=== PATIENT | female | born 1995 | race Hispanic/Latino ===

== ENCOUNTER 2018-05-02 23:21 | Emergency (ER) | payer OTHER ==
[2018-05-03 01:00] LABS: BASO % 0.3 % (0.0-1.0); EOS # 0.2 10^3/uL (0.0-0.50); EOS % 1.4 % (0.0-3.0); HEMATOCRIT 41.3 % (36.0-47.0); IMMATURE GRANULOCYTE % 0.3 % (0-3.0); LYMPH # 2.7 10^3/uL (1.5-6.5); LYMPH % 22.4 % (24.0-44.0); MEAN CORPUSCULAR HEMOGLOBIN 31.3 pg (27.0-33.0); MEAN CORPUSCULAR HGB CONC 33.9 g/dl (32.0-36.5); MEAN CORPUSCULAR VOLUME 92.4 fl (80.0-96.0); MONO # 0.9 10^3/uL (0.0-0.8); MONO % 7.3 % (0.0-5.0); NEUTROPHILS # 8.1 10^3/uL (1.8-7.7); NEUTROPHILS % 68.3 % (36.0-66.0); PLATELET COUNT, AUTOMATED 321 10^3/uL (150-450); RED BLOOD COUNT 4.47 10^6/uL (4.00-5.40); RED CELL DISTRIBUTION WIDTH 11.9 % (11.5-14.5); WHITE BLOOD COUNT 11.9 10^3/uL (4.0-10.0)
[2018-05-03 01:09] LABS: KETONE, URINE AUTO RFX 2+ mg/dL (NEGATIVE); LEUKOCYTE ESTERASE UR AUTO RFX NEGATIVE (NEGATIVE); MUCUS, URINE RFX SMALL (NEGATIVE); NITRITE, URINE AUTO RFX NEGATIVE (NEGATIVE); RBC, URINE AUTO RFX 4 /HPF (0-3); SPECIFIC GRAVITY UR AUTO RFX 1.013 (1.002-1.035); SQUAM EPITHELIAL CELL UR AURFX 3 /HPF (0-6); WBC, URINE AUTO RFX 1 /HPF (0-3)
[2018-05-03 02:00] LABS: ANION GAP 10 MEQ/L (8-16); BLOOD UREA NITROGEN 5 MG/DL (7-18); CALCIUM LEVEL 8.6 MG/DL (8.5-10.1); CARBON DIOXIDE LEVEL 23 MEQ/L (21-32); CHLORIDE LEVEL 104 MEQ/L (98-107); GLOMERULAR FILTRATION RATE > 60.0 (>60); GLUCOSE, FASTING 93 MG/DL (70-100); HCG, SERUM QUANTITATIVE 94579 MIU/ML; POTASSIUM SERUM 3.3 MEQ/L (3.5-5.1); SODIUM LEVEL 137 MEQ/L (136-145)
[2018-05-03] MEDS: POTASSIUM CHLORIDE 10 MEQ SR TABLET PO ×2 (03:07)
[2018-05-03 03:12] LABS: CHLAMYDIA DNA AMPLIFICATION NEGATIVE (NEGATIVE); GC DNA AMPLIFICATION NEGATIVE (NEGATIVE)
[2018-05-03] MEDS: metroNIDAZOLE (FLAGYL) 500 MG TAB PO ×2 (04:15)
== END 2018-05-03 04:29 | disposition home or self-care (01) ==
LOC: M ED 23:21
DX: O20.0 Threatened abortion (principal); O20.8 Other hemorrhage in early pregnancy; O23.91 Unspecified genitourinary tract infection in pregnancy, first trimester; Z3A.01 Less than 8 weeks gestation of pregnancy
CPT/HCPCS: 76801

== ENCOUNTER 2018-05-29 18:28 | Emergency (ER) | payer OTHER ==
[2018-05-29 19:25] LABS: BASO % 0.1 % (0.0-1.0); EOS # 0.1 10^3/uL (0.0-0.50); EOS % 1.3 % (0.0-3.0); HEMATOCRIT 38.8 % (36.0-47.0); HEMOGLOBIN 13.2 g/dl (12.0-15.5); IMMATURE GRANULOCYTE % 0.4 % (0-3.0); LYMPH # 1.2 10^3/uL (1.5-6.5); LYMPH % 14.3 % (24.0-44.0); MEAN CORPUSCULAR HEMOGLOBIN 31.4 pg (27.0-33.0); MEAN CORPUSCULAR VOLUME 92.2 fl (80.0-96.0); MONO # 0.5 10^3/uL (0.0-0.8); MONO % 6.1 % (0.0-5.0); NEUTROPHILS # 6.5 10^3/uL (1.8-7.7); NEUTROPHILS % 77.8 % (36.0-66.0); PLATELET COUNT, AUTOMATED 280 10^3/uL (150-450); RED BLOOD COUNT 4.21 10^6/uL (4.00-5.40); RED CELL DISTRIBUTION WIDTH 11.5 % (11.5-14.5); WHITE BLOOD COUNT 8.4 10^3/uL (4.0-10.0)
[2018-05-29 19:33] LABS: AMORPHOUS SEDIMENT RFX LARGE (NEGATIVE); KETONE, URINE AUTO RFX TRACE mg/dL (NEGATIVE); MUCUS, URINE RFX SMALL (NEGATIVE); NITRITE, URINE AUTO RFX NEGATIVE (NEGATIVE); RBC, URINE AUTO RFX 0 /HPF (0-3); SPECIFIC GRAVITY UR AUTO RFX 1.023 (1.002-1.035); SQUAM EPITHELIAL CELL UR AURFX 2 /HPF (0-6); WBC, URINE AUTO RFX 2 /HPF (0-3)
[2018-05-29 20:16] LABS: HCG, SERUM QUANTITATIVE 174121 MIU/ML
[2018-05-29 20:27] LABS: LEUKOCYTE ESTERASE UR AUTO RFX TRACE (NEGATIVE)
== END 2018-05-29 20:47 | disposition home or self-care (01) ==
LOC: M ED 18:28
DX: O26.891 Other specified pregnancy related conditions, first trimester (principal); R10.2 Pelvic and perineal pain; Z3A.11 11 weeks gestation of pregnancy; Z79.899 Other long term (current) drug therapy
CPT/HCPCS: 76801

== ENCOUNTER 2018-07-26 22:51 | Emergency (ER) | payer OTHER | END 2018-07-26 23:40 | disposition admitted as inpatient to this hospital (09) | LOC: M ED 22:51 | DX: O99.89 Other specified diseases and conditions complicating pregnancy, childbirth and the puerperium (principal); R10.9 Unspecified abdominal pain; R42 Dizziness and giddiness; Z3A.20 20 weeks gestation of pregnancy; Z79.899 Other long term (current) drug therapy ==

== ENCOUNTER 2018-07-26 23:04 | Outpatient (CLI) | payer OTHER ==
[~2018-07-26] VITALS: Ht 149.9 cm; Wt 52.5 kg
[~2018-07-26 23:04] MED LIST: FLAG500T PO; UNIS25TA3 PO; VITA50TA43 PO
[2018-07-26 23:20] VITALS: BP 113/73
[2018-07-26 23:21] VITALS: BP 111/74
[2018-07-26 23:23] VITALS: BP 113/66
[2018-07-29] MEDS ORDERED: prenatal PO (12:49)
[2018-07-29] MEDS ORDERED: PRENTAB77 PO (13:46)
== END 2018-07-26 23:37 | disposition home or self-care (01) ==
LOC: M LDO 23:04
PROVIDERS: ATTEND Obstetrics & Gynecology
DX: O21.9 Vomiting of pregnancy, unspecified (principal); Z63.0 Problems in relationship with spouse or partner; Z3A.00 Weeks of gestation of pregnancy not specified
CPT/HCPCS: G0378; G0463

== ENCOUNTER 2018-07-29 12:36 | Emergency (ER) | payer OTHER ==
[2018-07-29] MEDS: ASPIRIN 81 MG CHEW TABLET PO (13:04)
[2018-07-29] MEDS: NS 1,000 ML IV (13:04)
[2018-07-29 13:15] LABS: BASO % 0.2 % (0.0-1.0); EOS # 0.1 10^3/uL (0.0-0.50); HEMATOCRIT 37.2 % (36.0-47.0); HEMOGLOBIN 12.5 g/dl (12.0-15.5); IMMATURE GRANULOCYTE % 0.5 % (0-3.0); LYMPH # 1.3 10^3/uL (1.5-6.5); LYMPH % 13.7 % (24.0-44.0); MEAN CORPUSCULAR HEMOGLOBIN 31.3 pg (27.0-33.0); MEAN CORPUSCULAR HGB CONC 33.6 g/dl (32.0-36.5); MONO # 0.6 10^3/uL (0.0-0.8); MONO % 5.9 % (0.0-5.0); NEUTROPHILS # 7.4 10^3/uL (1.8-7.7); NEUTROPHILS % 78.7 % (36.0-66.0); PLATELET COUNT, AUTOMATED 256 10^3/uL (150-450); RED CELL DISTRIBUTION WIDTH 12.7 % (11.5-14.5); WHITE BLOOD COUNT 9.4 10^3/uL (4.0-10.0)
[2018-07-29 13:28] LABS: ALBUMIN 3.1 GM/DL (3.2-5.2); ALBUMIN/GLOBULIN RATIO 0.84 (1.00-1.93); ALKALINE PHOSPHATASE 91 U/L (45-117); ALT/SGPT 29 U/L (12-78); ANION GAP 9 MEQ/L (8-16); AST/SGOT 20 U/L (7-37); BILIRUBIN,DIRECT 0.1 MG/DL (0.0-0.2); BILIRUBIN,TOTAL 0.3 MG/DL (0.2-1.0); BLOOD UREA NITROGEN 6 MG/DL (7-18); CALCIUM LEVEL 8.6 MG/DL (8.5-10.1); CARBON DIOXIDE LEVEL 25 MEQ/L (21-32); CHLORIDE LEVEL 104 MEQ/L (98-107); CK-MB VALUE MASS < 1.0 NG/ML (<3.6); CPK CREATINE PHOSPHOKINASE 29 U/L (26-192); CREATININE FOR GFR 0.39 MG/DL (0.55-1.30); GLOMERULAR FILTRATION RATE > 60.0 (>60); GLUCOSE, FASTING 83 MG/DL (70-100); MB/CK RELATIVE INDEX 3.45 (< OR =4); POTASSIUM SERUM 3.7 MEQ/L (3.5-5.1); SODIUM LEVEL 138 MEQ/L (136-145); TOTAL PROTEIN 6.8 GM/DL (6.4-8.2); TROPONIN I < 0.02 NG/ML (< 0.10)
[2018-07-29 13:50] LABS: INR 1.09; PROTHROMBIN TIME 14.2 SECONDS (12.1-14.4)
[2018-07-29 14:41] LABS: KETONE, URINE AUTO RFX 1+ mg/dL (NEGATIVE); MUCUS, URINE RFX MODERATE (NEGATIVE); NITRITE, URINE AUTO RFX NEGATIVE (NEGATIVE); RBC, URINE AUTO RFX 2 /HPF (0-3); SPECIFIC GRAVITY UR AUTO RFX 1.017 (1.002-1.035); SQUAM EPITHELIAL CELL UR AURFX 7 /HPF (0-6); WBC, URINE AUTO RFX 3 /HPF (0-3)
[2018-07-29 14:53] LABS: LEUKOCYTE ESTERASE UR AUTO RFX TRACE (NEGATIVE)
== END 2018-07-29 15:52 | disposition home or self-care (01) ==
LOC: M ED 12:36
DX: O26.892 Other specified pregnancy related conditions, second trimester (principal); O99.342 Other mental disorders complicating pregnancy, second trimester; F41.9 Anxiety disorder, unspecified; Z3A.20 20 weeks gestation of pregnancy
CPT/HCPCS: 93005

== ENCOUNTER 2018-08-03 00:52 | Outpatient (CLI) | payer OTHER ==
[~2018-08-03 00:52] MED LIST changes: +PRENTAB77 PO; +prenatal PO
== END 2018-08-03 03:15 | disposition home or self-care (01) ==
LOC: M LDO 00:52
PROVIDERS: ATTEND Obstetrics & Gynecology
DX: O99.89 Other specified diseases and conditions complicating pregnancy, childbirth and the puerperium (principal); R10.30 Lower abdominal pain, unspecified; Z3A.00 Weeks of gestation of pregnancy not specified
CPT/HCPCS: G0378; G0463

== ENCOUNTER 2018-12-15 08:45 | Outpatient (CLI) | payer OTHER ==
[~2018-12-15] VITALS: Ht 149.9 cm; Wt 66.5 kg
[2018-12-15 09:28] VITALS: BP 131/91
[2018-12-15 09:42] VITALS: BP 129/88
--- NOTE | 2018-12-15 10:02 | IPNPDOC ---
Text Note Date of Service The patient was seen on 12/15/18. NOTE 23 yo at 40+1 weeks presented to L&D with contractions and slight vaginal spotting. She denies any leaking of fluid. She endorses excellent movement. She also denies any headaches, RUQ pain, visual changes, or SOB. is uncomplicated. She said her cervix was checked earlier this week and she was 1-2 cm dilated. Chaperoned by L&D RN Vitals - VSS (initial diastolic BP 91, repeat normal), non tachycardic, afebrile General - AAOX3, laying in bed, NAD Abdomen - Gravid uterus, no fundal tenderness Cervix - 2/70/-3, posterior Extremities - No edema FHR - Reactive NST with moderate variability, +accels, no decels Patient likely in early latent labor. Minimal to no cervical change compared to last exam. status reassuring. Repeat BP normal and she has no signs/symptoms of pre eclampsia. Discharged home with return precautions. DO Miguel A-FIB/CONSTANTINE A-FIB History Current/History of A-Fib/PAF?: No CHRIS LIM DO December 15, 2018 10:02
[2018-12-16] MEDS ORDERED: ACET25TA12 PO (12:29)
== END 2018-12-15 10:08 | disposition home or self-care (01) ==
LOC: M LDO 08:45
PROVIDERS: ATTEND Obstetrics & Gynecology
DX: O47.1 False labor at or after 37 completed weeks of gestation (principal); Z3A.40 40 weeks gestation of pregnancy
CPT/HCPCS: 59025; 76815; G0378; G0463

== ENCOUNTER 2018-12-16 12:11 | Inpatient (IN) | payer OTHER ==
[~2018-12-16] VITALS: Ht 149.9 cm; Wt 64.0 kg
[2018-12-16] VITALS (39 sets, daily range): BP systolic 99–151; BP diastolic 55–86
[2018-12-16] MEDS ORDERED: ACET25TA12 PO (12:29)
[2018-12-16] MEDS ORDERED: LACTATED RINGER'S 1000 ML IV STA (12:58)
--- NOTE | 2018-12-16 13:29 | HPEPDOC ---
Obstetrical History & Physical General Date of Admission December 16, 2018 at 12:58 History of Present Illness 23 yo at 40+2 weeks gestation by 7+4 week US on [id number] presents to L& D with regular, painful contractions along with bloody show. She was seen yesterday and was 2cm dilated. She reports contractions have been worsening over last 24 hours and became unbearable earlier this morning. She denies any leakage of fluid. She endorses excellent movement. is uncomplicated. 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 Past Medical History Medical History Denies Surgical History: Denies/None Family History Significant Family History: No pertinent family hx Family History Non contributory Social History Marital Status: Family situation: Spouse/partner home Psychosocial History: No pertinent psych hx * Smoker: non-smoker Alcohol: Denies Drugs: denies Imunizations Tdap status: current Influenza Status: current Allergies Coded Allergies: No Known Allergies (Unverified , 05/02/18) Medications Scheduled Pnv,Calcium 72/Iron/Folic Acid ( Plus Tablet) 1 Tab Tab, 1 TAB PO DAILY Scheduled PRN Acetaminophen/Diphenhydramine (Acetaminophen Pm Caplet) 1 Each Tablet, 2 TAB PO PRN PRN for SLEEP Physical Examination Physical Examination GENERAL: Alert and oriented times three. ABDOMEN: Gravid and non-tender to touch. FETUS: Is vertex (VTX) by sterile vaginal examination (SVE) EXTREMITIES: No edema. Vital Signs/I&O Vital Signs Date Time Temp Pulse Resp B/P (MAP) Pulse Ox O2 Delivery O2 Flow Rate FiO2 12/16/18 12:25 98.9 77 18 128/86 (100) Laboratory Data [facility] Laboratory Tests 2 12/16/18 13:05: Serology Scanned Report Hepatitis B Testing Urine Culture: No Growth Pertinent Laboratoy Data Blood Type: O+ RBC Antibody Screen: Negative HIV: Negative Hepatitis B: Negative Hepatitis C: Unknown Rapid Plasma Reagin: Nonreactive Rubella: Immune Varicella: Immune Chlamydia/Gonorrhea: Negative Group B Streptococcus: Negative Quad Screen Test: Unknown Cystic Fibrosis: Unknown Glucose Tolerance Test: 134 Anatomy Ultrasound Placenta Location: Posterior Normal Anatomy: Yes Placenta Previa: No Steroid Therapy Steroid Therapy: No Vaginal Examination Dilation: 4 cm Effacement: 100% Station: -1 Cervical Consistency: Soft Cervical Position: Anterior Presentation: Cephalic presentation Position: Vertex (occiput) Assessment Heart Rate (FHR): 135 Variability: Moderate Accelerations: Positive Decelerations: None Tocometer Contractions: Yes Frequency: regular, every 1-3 min. Strength: palpated as moderate Assessment/Plan Assessment 23 yo at 40+2 weeks gestation presented in active labor. Plan Admit for expectant management of labor. Will augment as clinically indicated. Apply IV fluids. Clear liquid diet. GBS negative. Patient may have epidural if desired. Anticipate . Emery Rivera, DO Labor and Delivery Counseling Labor//VAVD/FAVD consent Deliver your baby through the vagina with possible assistance of forceps or vacuum device if needed for maternal or indications. Forceps and vacuum are devices that can assist with vaginal delivery when normal pushing efforts cannot achieve delivery on their own or when delivery is needed in an emergency for baby's well-being. Medications may be required to induce or augment (help) your labor in order to achieve a vaginal delivery. An episiotomy may be required to help your baby to delivery vaginally. You may also require repair of any lacerations or tears of your vagina or vulva that are caused by delivery. In some cases, emergencies can occur that require an emergency section delivery so quickly that there may not be enough time to stop and complete consent forms for section. Understand that if this occurs, your providers will discuss the need for a section with you before they proceed with surgery. section is the delivery of your baby through an incision in your abdomen. In some situations, section may be safer to mom and baby than continuing labor and is only performed when clinically indicated. Risks of vaginal delivery include but are not limited to: Bleeding, infection, injury to the vagina, pelvic structures, injury to baby, damage to the uterus, reactions to anesthesia, uterine rupture, risk of hysterectomy for life threatening bleeding, or . Medications used to induce or augment labor may increase your risk for infection, uterine tachysystole, uterine rupture, heart rate abnormalities, need for emergency delivery or possible hysterectomy, and hemorrhage. Additional risks for use of forceps and vacuum include: increased risk of perineal and vaginal lacerations, risk of urinary or bowel incontinence, increased risk of injury to baby with bruising, scratches, hematomas on the head, or intracranial bleeding. Ms. Zambrano verbalizes understanding of these risks and elects to proceed. She also consents to a blood transfusion should it be required. DO RAPHAEL Shoemaker CHRISTOPHER J. DO December 16, 2018 13:28
[2018-12-16 13:39] LABS: HEMATOCRIT 43.6 % (36.0-47.0); HEMOGLOBIN 14.7 g/dl (12.0-15.5); MEAN CORPUSCULAR HGB CONC 33.7 g/dl (32.0-36.5); PLATELET COUNT, AUTOMATED 267 10^3/uL (150-450); RED BLOOD COUNT 4.74 10^6/uL (4.00-5.40); WHITE BLOOD COUNT 14.6 10^3/uL (4.0-10.0)
[2018-12-16] MEDS: LR 1,000 ML IV SCH ×2 (14:05→15:29)
[2018-12-16] MEDS ORDERED: FENTANYL 2MCG/ML ROPIVACAINE 0.2% IN 0.9% NACL 100ML IVBAG As Ordered ONE (14:13)
[2018-12-16] MEDS ORDERED: FENTANYL/ROPIVACAINE/NACL BAG 100 ML EPIDURAL SCH (16:15)
[2018-12-16] MEDS ORDERED: LACTATED RINGER'S 1000 ML IV PRN (16:15)
[2018-12-16] MEDS ORDERED: NALOXONE INJ 0.4 MG/1 ML VIAL (J2310) IV PRN (16:15)
[2018-12-16] MEDS ORDERED: ePHEDrine SULFATE 25 MG/5 ML(5MG/ML) SYRINGE IV PRN (16:15)
[2018-12-16] MEDS ORDERED: diphenhydrAMINE INJ 50MG/ML VIAL (J1200) IV PRN (16:15)
[2018-12-16] MEDS ORDERED: ONDANSETRON 4MG/2ML VIAL (J2405) IV PRN (16:15)
[2018-12-16] MEDS ORDERED: REFRIGERATOR IV KEYS XX PRN (16:15)
[2018-12-16] MEDS ORDERED: EPIDURAL/PCA KEYS XX PRN (16:15)
[2018-12-16] MEDS ORDERED: EPIDURAL COMMENT XX SCH (16:15)
--- NOTE | 2018-12-16 18:11 | IPNPDOC ---
Text Note Date of Service The patient was seen on 12/16/18. NOTE Presented to room for assessment of progress. Patient comfortable with epidural in place. Cervix: 6/C/0. SROM with exam, moderate amount of clear fluid. FHR Cat I. Ctx regular. Patient progressing well. Safe to proceed. DO Miguel A-FIB/SHEILADSVASC A-FIB History Current/History of A-Fib/PAF?: No VS,Fishbone, I+O VS, Fishbone, I+O Laboratory Tests 12/16/18 13:24 Red Blood Count 4.74, Mean Corpuscular Volume 92.0, Mean Corpuscular Hemoglobin 31.0, Mean Corpuscular Hemoglobin Concent 33.7, Red Cell Distribution Width 13.3 Vital Signs Date Time Temp Pulse Resp B/P (MAP) Pulse Ox O2 Delivery O2 Flow Rate FiO2 12/16/18 17:19 88 18 99/56 (70) 12/16/18 15:29 97.7 CHRIS LIM DO December 16, 2018 18:11
[2018-12-16] MEDS ORDERED: LR 1,000 ML IV SCH (20:01)
--- NOTE | 2018-12-16 20:03 | IPNPDOC ---
Text Note Date of Service The patient was seen on 12/16/18. NOTE Patient feeling increased pressure and pain. Cervix: unchanged at 6/C/0. IUPC placed. FHR remains Cat I, some early decels. No progress over last 2 hours. Will start pitocin with MVUs goal 180-200. All patient questions answered. DO Miguel A-FIB/CHADSVASC A-FIB History Current/History of A-Fib/PAF?: No VS,Fishbone, I+O VS, Fishbone, I+O Laboratory Tests 12/16/18 13:24 Red Blood Count 4.74, Mean Corpuscular Volume 92.0, Mean Corpuscular Hemoglobin 31.0, Mean Corpuscular Hemoglobin Concent 33.7, Red Cell Distribution Width 13.3 Vital Signs Date Time Temp Pulse Resp B/P (MAP) Pulse Ox O2 Delivery O2 Flow Rate FiO2 12/16/18 19:22 99.1 86 18 112/68 (83) CHRIS LIM DO December 16, 2018 20:03
[2018-12-16] MEDS ORDERED: OXYTOCIN DRIP 30 UNITS in APPROPRIATE DILUENT 1 EA IV SCH (20:15)
--- NOTE | 2018-12-16 23:25 | IPNPDOC ---
Text Note Date of Service The patient was seen on 12/16/18. NOTE Presented to room for assessment. Cervix: 6-7/C/0. position felt to be ROT. FHR Cat I mostly, rare variable decels. MVUs have been adequate. I discussed with Ms. Zambrano my concern for her slow progress and protracted active phase. She has been essentially unchanged since 1800. Will re examine in one hour. If there is no further change, I would recommend section. All patient questions answered. DO Miguel A-FIB/HILDAVASC A-FIB History Current/History of A-Fib/PAF?: No VS,Fishbone, I+O VS, Fishbone, I+O Laboratory Tests 12/16/18 13:24 Red Blood Count 4.74, Mean Corpuscular Volume 92.0, Mean Corpuscular Hemoglobin 31.0, Mean Corpuscular Hemoglobin Concent 33.7, Red Cell Distribution Width 13.3 Vital Signs Date Time Temp Pulse Resp B/P (MAP) Pulse Ox O2 Delivery O2 Flow Rate FiO2 12/16/18 19:22 99.1 86 18 112/68 (83) CHRIS LIM DO December 16, 2018 23:25
[2018-12-17] VITALS (15 sets, daily range): BP systolic 107–143; BP diastolic 56–82
[2018-12-17] MEDS ORDERED: BICITRA 30ML SOLN UDC As Ordered ONE (01:03)
[2018-12-17] MEDS ORDERED: ceFAZolin 2 GM/D5W 50 ML IV BAG (J0690 PER 500MG) As Ordered ONE (01:03)
[2018-12-17] MEDS ORDERED: AZITHROMYCIN INJ 500MG VIAL (J0456) As Ordered ONE (01:04)
[2018-12-17] MEDS ORDERED: LIDOCAINE 2% W/EPIN INJ 20ML **PRES FREE As Ordered ONE (01:12)
[2018-12-17] MEDS ORDERED: OXYTOCIN INJ 10 UNITS/ML VIAL (J2590) As Ordered ONE (01:13)
--- NOTE | 2018-12-17 01:14 | IPNPDOC ---
Text Note Date of Service The patient was seen on 12/17/18. NOTE Presented to room for assessment. Cervix: unchanged at 6-7/c/0. There is cervical swelling. FHR Cat II, but with moderate variability, overall reassuring. Cervix unchanged for 6 hours. I recommended section for arrest of dilation. We discussed all risks of surgery to include, but not limited to, bleeding requiring blood transfusion, risk of infection, risk of injury to bladder, bowel, or other structures which could require additional surgery, risk of needing hysterectomy as a life saving measure, risk of injury to baby, and even risk of and/or maternal . She verbalized understanding of these risks and elected to proceed. Will proceed to the OR urgently. Ancef and azithromycin for prophylaxis. Anesthesia notified. All patient questions answered. Miguel, DO A-FIB/SHEILADSVASC A-FIB History Current/History of A-Fib/PAF?: No VS,Fishbone, I+O VS, Fishbone, I+O Laboratory Tests 12/16/18 13:24 Red Blood Count 4.74, Mean Corpuscular Volume 92.0, Mean Corpuscular Hemoglobin 31.0, Mean Corpuscular Hemoglobin Concent 33.7, Red Cell Distribution Width 13.3 Vital Signs Date Time Temp Pulse Resp B/P (MAP) Pulse Ox O2 Delivery O2 Flow Rate FiO2 12/17/18 00:47 82 143/60 (87) 12/16/18 19:22 99.1 18 I&O- Last 24 Hours up to 6 AM 12/17/18 06:00 Intake Total 3180 ml Output Total 1150 ml Balance 2030 ml CHRIS LIM DO December 17, 2018 01:14
[2018-12-17] MEDS ORDERED: AZITHROMYCIN INJ 500 MG, VIAL MATE ADAPTER 1 EACH in D5W 250 ML IV ONE (01:15)
[2018-12-17] MEDS ORDERED: ONDANSETRON 4MG/2ML VIAL (J2405) As Ordered ONE (01:17)
[2018-12-17] MEDS ORDERED: dexameTHASONE 4 MG/ML 1ML VIAL (J1100) As Ordered ONE (01:17)
[2018-12-17] MEDS ORDERED: MORPHINE PRES-FREE INJ 10 MG/10 ML VIAL (J2274) As Ordered ONE (02:06)
[2018-12-17] MEDS ORDERED: NALBUPHINE HCL 10 MG/ML AMP (J2300) IV PRN (02:10)
[2018-12-17] MEDS ORDERED: ONDANSETRON 4MG/2ML VIAL (J2405) IV PRN ×3 (02:10→02:45)
[2018-12-17] MEDS ORDERED: METOCLOPRAMIDE INJ 10MG/2ML VIAL (J2765) IV PRN ×2 (02:10→02:30)
[2018-12-17] MEDS ORDERED: NALOXONE INJ 0.4 MG/1 ML VIAL (J2310) IV PRN ×2 (02:10)
[2018-12-17] MEDS ORDERED: diphenhydrAMINE INJ 50MG/ML VIAL (J1200) IV PRN (02:10)
[2018-12-17] MEDS ORDERED: fentaNYL 100 MCG/2 ML INJECTION (J3010) IV PRN (02:30)
[2018-12-17] MEDS ORDERED: MEPERIDINE INJ 25 MG/ML VIAL (J2175) IV PRN (02:30)
[2018-12-17] MEDS ORDERED: OXYTOCIN DRIP 30 UNITS in APPROPRIATE DILUENT 1 EA IV SCH (02:40)
[2018-12-17] MEDS ORDERED: DOCUSATE SODIUM 100 MG CAP PO PRN (02:45)
[2018-12-17] MEDS ORDERED: RHOGAM 300 MCG (1500 IU) INJ (J2790) IM SCH (02:45)
[2018-12-17] MEDS ORDERED: MEASLES,MUMPS,RUBELLA VACCINE INJ (MMR-II) (90707) SC SCH (02:45)
[2018-12-17] MEDS ORDERED: METHYLERGONOVINE MALEATE 0.2 MG/ML VIAL (J2210) IM PRN (02:45)
[2018-12-17] MEDS ORDERED: PERCOCET 5MG/325MG TAB PO PRN (02:45)
[2018-12-17] MEDS ORDERED: KETOROLAC 30 MG/ML VIAL (J1885) As Ordered ONE (02:51)
[2018-12-17] MEDS: KETOROLAC 30 MG/ML VIAL (J1885) IV SCH ×4 (02:55→21:09)
[2018-12-17] MEDS: PERCOCET 5MG/325MG TAB PO PRN ×4 (04:53→22:21)
[2018-12-17] MEDS ORDERED: BICITRA 30ML SOLN UDC PO SCH (06:00)
[2018-12-17] MEDS: PRENATAL VITAMINS CHEWABLE TABLET PO SCH (08:43)
--- NOTE | 2018-12-17 09:56 | RO ---
DATE OF PROCEDURE: 12/17/2018 PREOPERATIVE DIAGNOSIS: Arrest of dilation. POSTOPERATIVE DIAGNOSIS: Arrest of dilation. PROCEDURE: Primary low transverse section. SURGEON: Dr. Emery Rivera MAGNETIC PROSPECTING OPERATOR: Dr. Aubrey Hernandez, who's assistance with visualization, retraction, and delivery of the infant was essential to completing the case. ANESTHESIA: Epidural. FLUIDS: 1400 mL of lactated Ringer's (LR). URINE OUTPUT: 175 mL. ESTIMATED BLOOD LOSS: 500 mL. COMPLICATIONS: None. ANTIBIOTICS: 2 grams Ancef, 500 mg azithromycin. OPERATIVE FINDINGS: Viable male found in cephalic right occiput transverse (ROT) position with a loose nuchal cord. weight was 2930 grams or 6 pounds 7 ounces. score 9 and 9. DETAILED PROCEDURE DESCRIPTION: The risks, benefits, indications, and alternatives of the procedure were reviewed with the patient and informed consent was obtained. The patient was taken to the operating room where epidural anesthesia was found to be adequate. She was then prepped and draped in the usual sterile fashion in the dorsal supine position. A surgical time-out was performed in which the patient's identity and planned procedure were verified with the operative team. A Schneider catheter had previously been placed to drain the bladder. A Pfannenstiel skin incision was then made with a scalpel and carried through to the underlying layer of fascia using the Bovie electrocautery. The fascia was incised in the midline, and the incision was extended laterally with Obrien scissors. The superior aspect of the fascial incision was grasped with Kervin clamps, elevated and the underlying rectus muscles were dissected off with a scalpel. Attention was then turned to the inferior aspect of this incision, which in a similar fashion was grasped, tented up with Kervin clamps, and the rectus muscles were dissected off with Obrien scissors. The rectus muscles were then at the midline. The peritoneum was identified and entered digitally. The peritoneal incision was then extended horizontally and superiorly with good visualization of the bladder. A bladder blade was then inserted into the abdomen. The vesicouterine peritoneum was then identified and entered sharply with scalpel. This incision was then extended laterally, and the bladder flap was created digitally. Next, the lower uterine segment was incised in a transverse fashion with a scalpel. The uterine incision was then extended manually. Clear fluid was noted upon entry into the uterus. The infant was found in cephalic ROT presentation. The infant's head was then delivered atraumatically through the hysterotomy site without difficulty, followed by the remainder of the body. The nose and mouth were suctioned with a bulb syringe, and the cord was doubly clamped and cut. The was then handed off to the awaiting pediatricians. The placenta was then removed manually. The uterus was then exteriorized and cleared of all clots and debris. The uterine incision was then repaired with #0 Monocryl suture in a running locked fashion. A second layer of #0 Monocryl was then used to imbricate the hysterotomy in a vertical fashion. Inspection revealed hemostasis. The posterior cul-de-sac was then irrigated to good effect. The uterus was then returned to the abdomen, and the hysterotomy was again inspected. There was mild oozing in the midline of the hysterotomy that was controlled with a [id number] suture of #3-0 Vicryl. The paracolic gutters were then irrigated and cleared of all clots and debris. The bladder blade was then removed from the abdomen. The hysterotomy was then inspected along the entire length and was found to be hemostatic. The peritoneum was then closed with #3-0 Vicryl suture in a running fashion. The fascia was then closed with #0 Vicryl suture in a running fashion. The subcutaneous fat was then closed with #3-0 Vicryl suture in a running fashion. The skin was closed with #4-0 Monocryl suture in a subcuticular fashion. The incision was then dressed with Steri-Strips and a pressure dressing was applied. At the completion of the case, a bimanual exam was performed which revealed good uterine tone and minimal vaginal bleeding. The patient tolerated the procedure well. Sponge, lap, instrument and needle counts were correct times three. The patient was taken to the recovery room in stable condition. GUSTAVO
[2018-12-18 02:15] VITALS: BP 128/82
[2018-12-18] MEDS: IBUPROFEN 800 MG TAB PO SCH ×3 (05:42→20:33)
[2018-12-18 06:12] VITALS: BP 124/79
[2018-12-18 07:10] LABS: HEMATOCRIT 35.9 % (36.0-47.0); MEAN CORPUSCULAR HEMOGLOBIN 30.9 pg (27.0-33.0); MEAN CORPUSCULAR HGB CONC 32.9 g/dl (32.0-36.5); PLATELET COUNT, AUTOMATED 205 10^3/uL (150-450); RED BLOOD COUNT 3.82 10^6/uL (4.00-5.40); WHITE BLOOD COUNT 15.4 10^3/uL (4.0-10.0)
[2018-12-18 07:19] LABS: HEMOGLOBIN 11.8 g/dl (12.0-15.5)
--- NOTE | 2018-12-18 07:22 | IPNPDOC ---
Text Note Date of Service The patient was seen on 12/18/18. NOTE POD1 PLTCS States feeling well, pain controlled with prescribed meds. Baby bonding and feeding well. No heavy VB. Lochia slowing. Ambulatory. Tolerating PO without issues. Schneider out-has voided, UO adequate. VSSAF NAD A&O RRR CTAB LE no C/C/E Ut at U-2, [employer] CDI, bandage removed CBC this AM, HCT 35.9, PLT 205 (appropriate) a/p: Doing well. Cont routine postop care. D/C tomorrow likely. Sessions A-FIB/CONSTANTINE A-FIB History Current/History of A-Fib/PAF?: No VS,Fishbone, I+O VS, Fishbone, I+O Laboratory Tests 12/18/18 06:35 Red Blood Count 3.82 L, Mean Corpuscular Volume 94.0, Mean Corpuscular Hemoglobin 30.9, Mean Corpuscular Hemoglobin Concent 32.9, Red Cell Distribution Width 13.8 Vital Signs Date Time Temp Pulse Resp B/P (MAP) Pulse Ox O2 Delivery O2 Flow Rate FiO2 12/18/18 06:12 99.7 85 18 124/79 (94) 12/18/18 02:15 98 I&O- Last 24 Hours up to 6 AM 12/18/18 06:00 Intake Total 2580 ml Output Total 2325 ml Balance 255 ml SESSIONS,MISTI Fiore MD December 18, 2018 07:22
[2018-12-18] MEDS: PRENATAL VITAMINS CHEWABLE TABLET PO SCH (08:12)
[2018-12-18] MEDS: PERCOCET 5MG/325MG TAB PO PRN ×4 (08:12→22:44)
[2018-12-18 10:00] VITALS: BP 119/67
[2018-12-18 14:00] VITALS: BP 120/68
[2018-12-18 18:00] VITALS: BP 111/70
[2018-12-18 22:11] VITALS: BP 117/58
[2018-12-19 02:00] VITALS: BP 118/62
[2018-12-19] MEDS: IBUPROFEN 800 MG TAB PO SCH (05:27)
[2018-12-19 05:40] VITALS: BP 113/79
--- NOTE | 2018-12-19 07:34 | DS.PDOC ---
Discharge Summary General Date of Admission December 16, 2018 at 12:58 Date of Discharge December 19, 2018 Discharge Summary HOSPITAL COURSE: Ms. Zambrano is a 23 yo G2 now P1 who underwent an uncomplicated PLTCS in the clinical quality assurance associate hours of [id number] for arrest of dilation after being admitted for labor. Her course has been unremarkable. On her day of discharge she met all appropriate discharge criteria. She was ambulating, voiding, tolerating a regular diet, had minimal lochia, and had minimal pain that was controlled with PO pain medications. DISCHARGE MEDICATIONS: Please see below. ALLERGIES: Please see below. PHYSICAL EXAMINATION ON DISCHARGE: VITAL SIGNS: Please see below. GENERAL: AAOX3, sitting up in bed, NAD ABDOMINAL EXAMINATION: Fundus firm at U-2. No fundal tenderness. Incision clean/dry/intact. Steri strips in place. No tenderness to palpation. EXTREMITIES: No edema PSYCHIATRIC EXAMINATION: Affect appropriate ACTIVITY: Pelvic rest for 6 weeks. No lifting >10pounds for 6 weeks. DIET: Regular DISCHARGE PLAN: Discharge home on [id number] DISPOSITION: DC home. DISCHARGE INSTRUCTIONS: 1. Pelvic rest for 6 weeks. 2. No heavy lifting. 3. incision check in two weeks ITEMS TO FOLLOWUP ON ON OUTPATIENT: 1. Incision check in 2 weeks DISCHARGE CONDITION: Stable. TIME SPENT ON DISCHARGE: Greater than 20 minutes. Chris Rivera DO Vital Signs/I&Os Vital Signs Date Time Temp Pulse Resp B/P (MAP) Pulse Ox O2 Delivery O2 Flow Rate FiO2 12/19/18 05:40 97.3 82 18 113/79 (90) 12/19/18 02:00 97 Discharge Medications Scheduled Pnv,Calcium 72/Iron/Folic Acid ( Plus Tablet) 1 Tab Tab, 1 TAB PO DAILY, (Reported) Scheduled PRN Acetaminophen/Diphenhydramine (Acetaminophen Pm Caplet) 1 Each Tablet, 2 TAB PO PRN PRN for SLEEP, (Reported) Allergies Coded Allergies: No Known Allergies (Unverified , 05/02/18) CHRIS RIVERA DO December 19, 2018 07:34
[2018-12-19] MEDS: PERCOCET 5MG/325MG TAB PO PRN (08:42)
[2018-12-19] MEDS: PRENATAL VITAMINS CHEWABLE TABLET PO SCH (08:43)
[2018-12-19] MEDS ORDERED: OXYC1TAB23 PO (10:39)
[2018-12-19] MEDS ORDERED: COLA100C5 PO (10:39)
[2018-12-19] MEDS ORDERED: PRENTAB9 PO (10:39)
[2018-12-19] MEDS ORDERED: IBUP-1114 PO (10:39)
== END 2018-12-19 12:25 | disposition home or self-care (01) | DRG 773 ==
LOC: M LDO 12:11 → M LDI 12:58 → M OBS 12-17 04:35
PROVIDERS: ADMIT Obstetrics & Gynecology; ATTEND Obstetrics & Gynecology
PROC: 10D00Z1 Extraction of Products of Conception, Low, Open Approach (ICD-10-PCS; principal; 2018-12-17 01:05)
DX: O48.0 Post-term pregnancy (principal); Z3A.40 40 weeks gestation of pregnancy; O62.0 Primary inadequate contractions; O69.81X0 Labor and delivery complicated by cord around neck, without compression, not applicable or unspecified; Z37.0 Single live birth